=== PATIENT | female | born 2000 | race Hispanic/Latino ===

== ENCOUNTER 2023-12-04 21:58 | Emergency (ER) | payer OTHER ==
[~2023-12-04] VITALS: Ht 167.6 cm; Wt 50.1 kg
[2023-12-04] MEDS ORDERED: ONDANSETRON 4 MG TAB ODT SL ONE (22:15)
[2023-12-04 22:33] LABS: BILIRUBIN, URINE NEGATIVE (negative); BLOOD/HGB, URINE LARGE (Negative); KETONE, URINE SMALL (Negative); LEUK ESTERASE, URINE TRACE (negative); NITRITE, URINE POSITIVE (negative)
[2023-12-04 22:38] LABS: EPITHELIAL CELLS, URINE SQUAMOUS 1+ /lpf (0-1+)
[2023-12-04 22:39] LABS: BACTERIA, URINE 4+ /hpf (negative); CASTS, URINE NONE SEEN \\lpf; COLLECTION TYPE, URINE CLEAN CATCH; CRYSTALS, URINE NONE SEEN (0-1+); RED BLOOD CELLS, URINE 21-40 /hpf (0-5); REFLEX CULTURE, URINE Yes (No); WHITE BLOOD CELLS, URINE >50 /HPF (0-5)
[2023-12-04 22:58] LABS: INFLUENZA B NAA NEGATIVE (NEGATIVE); RESPIRATORY SYNCYTIAL VIR NAA NEGATIVE (NEGATIVE)
[2023-12-04] MEDS ORDERED: CEPHALEXIN500 MG PO (23:20)
[2023-12-04] MEDS ORDERED: ONDANSETRON ODT4 MG PO (23:21)
[2023-12-04 23:28] VITALS: BP 106/74
[2023-12-04] MEDS ORDERED: ONDANSETRON 4 MG HOME.PACK SL ONE (23:30)
[2023-12-04] MEDS ORDERED: CEPHALEXIN MONOHYDRATE 500 MG CAP PO ONE (23:30)
== END 2023-12-04 23:29 | disposition home or self-care (01) ==
LOC: ED 21:58
PROVIDERS: Internal Medicine
DX: N39.0 Urinary tract infection, site not specified (principal)
CPT/HCPCS: 81001; 84703; 87502; 87651; A9270; U0002

== ENCOUNTER 2024-05-10 04:37 | Emergency (ER) | payer OTHER ==
[~2024-05-10] VITALS: Ht 167.6 cm; Wt 54.9 kg
[~2024-05-10 04:37] MED LIST: CEPHALEXIN500 MG PO; ONDANSETRON ODT4 MG PO
[2024-05-10 05:05] LABS: BILIRUBIN, URINE NEGATIVE (negative); BLOOD/HGB, URINE TRACE-I (Negative); KETONE, URINE NEGATIVE (Negative); LEUK ESTERASE, URINE NEGATIVE (negative); NITRITE, URINE NEGATIVE (negative)
[2024-05-10 05:06] LABS: HEMOGLOBIN 10.7 g/dL (12.0-18.0); MCH 24.2 (27-36); MCHC 32.5 g/dl (30-36)
[2024-05-10 05:08] LABS: BASOPHILS 0.3 % (0-2); EOSINOPHILS 0.2 % (0-6); HEMATOCRIT 32.8 % (35.0-50.0); LYMPHOCYTES 20.4 % (24-44); MCV 74.3 fl (81-99); MONOCYTES 7.3 % (0-12); NEUTROPHILS 71.8 % (39-80); PLATELET COUNT 404 K/uL (140-440); RBC 4.41 M/ul (4.3-5.7); RDW 16.5 (10.5-15.0)
[2024-05-10 05:22] LABS: ALBUMIN 3.8 g/dL (3.4-5.0); ALBUMIN/GLOBULIN RATIO 0.88 (1.1-2.4); ANION GAP 14.9 (7-21); BILIRUBIN, TOTAL 0.2 ng/dL (0.2-1.0); BUN/CREATININE RATIO 20.31 (6.0-28.6); CALCIUM 8.8 mg/dL (8.5-10.1); CREATININE, SERUM 0.64 mg/dL (0.55-1.02); POTASSIUM 3.9 mmol/L (3.5-5.1); PROTEIN, TOTAL 8.1 g/dL (6.4-8.2)
[2024-05-10 05:32] LABS: BACTERIA, URINE 1+ /hpf (negative); CASTS, URINE NONE SEEN \\lpf; COLLECTION TYPE, URINE CLEAN CATCH; CRYSTALS, URINE NONE SEEN (0-1+); EPITHELIAL CELLS, URINE SQUAMOUS 2+ /lpf (0-1+); REFLEX CULTURE, URINE No (No)
[2024-05-10 08:24] VITALS: BP 103/74
== END 2024-05-10 08:24 | disposition home or self-care (01) ==
LOC: ED 04:37
PROVIDERS: Emergency Medicine
DX: O99.891 Other specified diseases and conditions complicating pregnancy (principal); R10.2 Pelvic and perineal pain; Z3A.01 Less than 8 weeks gestation of pregnancy
CPT/HCPCS: 36415; 76801; 76817; 80053; 81001; 83690; 84702; 84703; 85025; 99284-25